=== PATIENT | female | born 1970 | race Caucasian/White ===

== ENCOUNTER 2019-04-18 11:39 | Outpatient (REF) | payer OTHER, SELFPAY ==
[2019-04-18 21:55] LABS: HCT 38.7 % (36.0-46.0); HGB 13.1 g/dL (12.0-15.5); Mean Corp. HGB Concentration 33.9 g/dL (32.0-36.0); Mean Corpuscular Hemoglobin 30.6 pg (27.0-33.0); Mean Corpuscular Volume 90.4 fL (80-95); Platelet Count 286 x1000/uL (130-400); RBC 4.28 m/cumm (4.00-5.20); RBC Distribution Width 12.7 % (11.7-14.6)
[2019-04-18 22:56] LABS: Calculated LDL 111 mg/dL; Cholesterol 185 mg/dL (<200); HDL Cholesterol 59 mg/dL (40-60); TSH 1.16 uIU/mL (0.36-3.74); Triglyceride 79 mg/dL (<150)
[2019-04-18 22:58] LABS: Hemoglobin A1C 5.6 % (4.5-6.2)
== END 2019-04-18 11:59 ==
LOC: NCHCN 11:39
PROVIDERS: PCP Nurse Practitioner Family; Visit Provider Nurse Practitioner Family
DX: Z00.00 Encounter for general adult medical examination without abnormal findings (principal); Z13.1 Encounter for screening for diabetes mellitus; Z13.220 Encounter for screening for lipoid disorders; Z13.29 Encounter for screening for other suspected endocrine disorder; N92.1 Excessive and frequent menstruation with irregular cycle
CPT/HCPCS: 80061; 85027; 83036; 84443

== ENCOUNTER 2019-06-02 09:19 | Outpatient (REF) | payer OTHER, SELFPAY ==
--- NOTE | 2019-06-02 08:30 | PAPFT_PTH ---
PATIENT: Vijaya Henderson LOC: MERGED WITH [facility]#:[id number] AGE/SX: 48/F ROOM: RE06/02/[address]: Crys Alexandre : 1970 BED: DIS: 06/02/2019 SPEC #: [id number] RECD: 06/03/19 13:15 STATUS: ELADIO TURNER #: [id number] DIXON: 06/02/19 08:[address]: Crys Young DEPT: [facility] Cytology RECD BY: Linsey Ibanez ENTERED: 06/03/19 13:15 SP TYPE: PAPFT OTHR DR: Aziza Bridges Tissues: 1 - CX/ENDOCX FOR PAP SMEARS Procedures: PAP THIN PREP/[facility] Screening HPV DNA PROBE Comments: [id number]
== END 2019-06-02 09:39 ==
LOC: NCHCN 09:19
PROVIDERS: PCP Nurse Practitioner Family; Visit Provider Nurse Practitioner Family
DX: Z12.4 Encounter for screening for malignant neoplasm of cervix (principal)
CPT/HCPCS: 88142; 87624

== ENCOUNTER 2020-05-15 21:29 | Outpatient (REF) | payer OTHER, SELFPAY ==
[2020-05-15 21:53] LABS: Hemoglobin A1C 5.6 % (<5.7)
[2020-05-15 22:06] LABS: TSH 1.84 uIU/mL (0.36-3.74)
== END 2020-05-15 21:49 ==
LOC: NCHCN 21:29
PROVIDERS: PCP Nurse Practitioner Family; Visit Provider Nurse Practitioner Family
DX: R00.2 Palpitations (principal); Z13.1 Encounter for screening for diabetes mellitus
CPT/HCPCS: 83036; 84443

== ENCOUNTER 2021-06-06 18:14 | Outpatient (REF) | payer OTHER, SELFPAY ==
[2021-06-06 22:01] LABS: BUN 16 mg/dL (7-18); CREATININE 0.8 mg/dL (0.55-1.02); Calcium 9.2 mg/dL (8.5-10.1); Chloride 102 mmol/L (98-107); Glucose 90 mg/dL (74-106); Potassium 4.1 mmol/L (3.5-5.1); Sodium 137 mmol/L (136-145)
[2021-06-06 22:06] LABS: Hemoglobin A1C 5.9 % (<5.7)
== END 2021-06-06 18:15 | disposition home or self-care (01) ==
LOC: NCHCN 18:14
PROVIDERS: PCP Nurse Practitioner Family; Visit Provider Nurse Practitioner Family
DX: Z13.1 Encounter for screening for diabetes mellitus (principal); Z00.8 Encounter for other general examination
CPT/HCPCS: 80048; 83036

== ENCOUNTER 2021-12-09 15:47 | Outpatient (REF) | payer OTHER, SELFPAY ==
[2021-12-09 14:28] LABS: HCT 35.8 % (36.0-46.0); HGB 11.4 g/dL (11.2-15.7); MCH 27.3 pg (27.0-33.0); MCHC 31.8 % (32.0-36.0); MCV 86 fL (80-95); MPV 11.2 fL (8.0-11.0); Platelet Count 315 10^3/uL (130-400); RBC 4.17 10^6/uL (3.93-5.22); RDW 14.6 % (11.7-14.6); RDW-SD 46.2 fL; WBC 5.99 10^3/uL (4.4-10.8)
[2021-12-09 14:50] LABS: Hemoglobin A1C 5.6 % (<5.7)
[2021-12-09 14:59] LABS: Calculated LDL 119 mg/dL (<100); Cholesterol 194 mg/dL (<200); HDL Cholesterol 69 mg/dL (40-60); Triglyceride 32 mg/dL (<150)
== END 2021-12-09 15:48 | disposition home or self-care (01) ==
LOC: NCHCN 15:47
PROVIDERS: PCP Nurse Practitioner Family; Visit Provider Nurse Practitioner Family
DX: Z00.00 Encounter for general adult medical examination without abnormal findings (principal); D50.9 Iron deficiency anemia, unspecified; Z13.220 Encounter for screening for lipoid disorders; R73.03 Prediabetes
CPT/HCPCS: 80061; 85027; 83036

== ENCOUNTER 2023-11-16 16:05 | Outpatient (REF) | payer OTHER, SELFPAY ==
[2023-11-16 15:56] LABS: HCT 38.7 % (36.0-46.0); HGB 12.8 g/dL (11.2-15.7); MCH 30.8 pg (27.0-33.0); MCHC 33.1 % (32.0-36.0); MCV 93 fL (80-95); MPV 11.3 fL (8.0-11.0); Platelet Count 286 10^3/uL (130-400); RBC 4.16 10^6/uL (3.93-5.22); RDW 12.2 % (11.7-14.6); RDW-SD 41.9 fL; WBC 9.06 10^3/uL (4.4-10.8)
[2023-11-16 16:45] LABS: Hemoglobin A1C 5.8 % (<5.7)
[2023-11-16 17:17] LABS: ALT 43 U/L (14-59); AST 23 U/L (15-37); Albumin 3.9 g/dL (3.4-5.0); Alkaline Phosphatase 45 U/L (46-116); Anion Gap 11.5 mmol/L (3-11); BUN 12 mg/dL (7-18); Bilirubin, Total 0.48 mg/dL (0.2-1.0); CO2 24.5 mmol/L (21.0-32.0); CREATININE 0.8 mg/dL (0.55-1.02); Calcium 9.4 mg/dL (8.5-10.1); Calculated LDL 128 mg/dL (<100); Chloride 107 mmol/L (98-107); Cholesterol 206 mg/dL (<200); Glucose 86 mg/dL (74-106); HDL Cholesterol 63 mg/dL (40-60); Potassium 3.9 mmol/L (3.5-5.1); Sodium 143 mmol/L (136-145); TSH 1.23 uIU/Ml (0.36-3.74); Total Protein 7.6 g/dL (6.4-8.2); Triglyceride 79 mg/dL (<150)
== END 2023-11-16 16:06 | disposition home or self-care (01) ==
LOC: NCHCN 16:05
PROVIDERS: PCP Nurse Practitioner Family; Visit Provider Nurse Practitioner Family
DX: R73.03 Prediabetes (principal); R79.89 Other specified abnormal findings of blood chemistry; Z13.6 Encounter for screening for cardiovascular disorders; Z13.0 Encounter for screening for diseases of the blood and blood-forming organs and certain disorders involving the immune mechanism; Z13.29 Encounter for screening for other suspected endocrine disorder
CPT/HCPCS: 80053; 80061; 85027; 83036; 84443

== ENCOUNTER 2024-11-01 11:42 | Outpatient (REF) | payer OTHER, SELFPAY ==
[2024-11-01 15:44] LABS: HCT 39.8 % (36.0-46.0); HGB 13.2 g/dL (11.2-15.7); MCH 30.3 pg (27.0-33.0); MCHC 33.2 % (32.0-36.0); MCV 92 fL (80-95); MPV 10.3 fL (8.0-11.0); Platelet Count 276 10^3/uL (130-400); RBC 4.35 10^6/uL (3.93-5.22); RDW 12.3 % (11.7-14.6); RDW-SD 41.1 fL
[2024-11-01 17:30] LABS: Hemoglobin A1C 5.7 % (<5.7)
[2024-11-01 18:30] LABS: ALT 72 U/L (14-59); AST 39 U/L (15-37); Alkaline Phosphatase 53 U/L (46-116); Anion Gap 9.2 mmol/L (3-11); BUN 14 mg/dL (7-18); Bilirubin, Total 0.5 mg/dL (0.2-1.0); CO2 26.8 mmol/L (21.0-32.0); CREATININE 0.9 mg/dL (0.55-1.02); Calcium 9.3 mg/dL (8.5-10.1); Calculated LDL 148 mg/dL (<100); Chloride 103 mmol/L (98-107); Cholesterol 227 mg/dL (<200); Estimated GFR 76.44 (mL/min/1.73m2); Ferritin 52 ng/mL (8-252); Glucose 95 mg/dL (74-106); HDL Cholesterol 62 mg/dL (>or=50); Potassium 4.2 mmol/L (3.5-5.1); Sodium 139 mmol/L (136-145); Total Protein 7.7 g/dL (6.4-8.2); Triglyceride 85 mg/dL (<150)
== END 2024-11-01 11:43 | disposition home or self-care (01) ==
LOC: NCHCN 11:42
PROVIDERS: PCP Nurse Practitioner Family; Visit Provider Nurse Practitioner Family
DX: R73.03 Prediabetes (principal); Z13.220 Encounter for screening for lipoid disorders; Z13.0 Encounter for screening for diseases of the blood and blood-forming organs and certain disorders involving the immune mechanism
CPT/HCPCS: 80053; 80061; 85027; 82728; 83036

== ENCOUNTER 2024-11-08 12:27 | Outpatient (REF) | payer OTHER, SELFPAY ==
--- NOTE | 2024-11-08 08:30 | PAPFT_PTH ---
PATIENT: Vijaya Henderson LOC: [facility]#:[id number] AGE/SX: 54/F ROOM: RE11/08/[address]: Crys Alexandre : 1970 BED: DIS: 11/08/2024 SPEC #: [id number] RECD: 11/08/24 17:58 STATUS: ELADIO REMario #: [id number] DIXON: 11/08/24 08:[address]: Crys Young DEPT: [facility] Cytology RECD BY: Linsey Ibanez ENTERED: 11/08/24 17:58 SP TYPE: PAPFT OTHR DR: Aziza Bridges Tissues: 1 - CX/ENDOCX FOR PAP SMEARS Procedures: PAP THIN PREP/[facility] Screening HPV DNA PROBE Comments: [id number] (HPV 16 & 18/45)
== END 2024-11-08 12:28 | disposition home or self-care (01) ==
LOC: NCHCN 12:27
PROVIDERS: PCP Nurse Practitioner Family; Visit Provider Nurse Practitioner Family
DX: Z12.4 Encounter for screening for malignant neoplasm of cervix (principal); Z00.00 Encounter for general adult medical examination without abnormal findings
CPT/HCPCS: 88142; 87624

== ENCOUNTER 2025-05-10 17:58 | Outpatient (REF) | payer OTHER, SELFPAY ==
[2025-05-10 21:57] LABS: ALT 64 U/L (10-49); AST 37 U/L (<34); Albumin 4.9 g/dL (3.2-5.0); Alkaline Phosphatase 61 U/L (46-116); Bilirubin, Direct 0.1 mg/dL (<=0.3); Bilirubin, Total 0.3 mg/dL (0.2-1.2); Total Protein 7.7 g/dL (5.7-8.2)
== END 2025-05-10 17:59 | disposition home or self-care (01) ==
LOC: NCHCN 17:58
PROVIDERS: PCP Nurse Practitioner Family; Visit Provider Nurse Practitioner Family
DX: R79.89 Other specified abnormal findings of blood chemistry (principal)
CPT/HCPCS: 80076